=== PATIENT | female | born 1995 | race African-American/Black ===

== ENCOUNTER 2023-06-13 09:58 | Emergency (ER) | payer OTHER ==
[~2023-06-13] VITALS: Ht 165.1 cm; Wt 84.0 kg
[2023-06-13 10:02] VITALS: O2SAT 100
[2023-06-13] MEDS ORDERED: ACET-2708 MT (11:42)
[2023-06-13] MEDS ORDERED: KETOROLAC 15MG/ML VIAL IM ONE (11:45)
[2023-06-13 12:05] VITALS: BP 128/88; PULSE 78; RESP 18; TEMP 98.8
== END 2023-06-13 12:08 | disposition home or self-care (01) ==
LOC: ER 09:58
DX: S06.0X0A Concussion without loss of consciousness, initial encounter (principal); S80.212A Abrasion, left knee, initial encounter; V98.8XXA Other specified transport accidents, initial encounter; Y93.89 Activity, other specified; Y92.89 Other specified places as the place of occurrence of the external cause; Y99.8 Other external cause status
CPT/HCPCS: 99283; 81025; 96372; J1885